=== PATIENT | female | born 1995 | race American Indian/Alaskan Native ===

== ENCOUNTER 2017-03-13 01:02 | Emergency (ER) | payer OTHER ==
[2017-03-13] MEDS ORDERED: TYLENOL ONE (04:52)
[2017-03-13] MEDS ORDERED: TYLENOL PO ONE (05:28)
[2017-03-13 05:49] VITALS: BP 111/71
[2017-03-13] MEDS ORDERED: TETRACAINE 0.5% OD STA (07:45)
[2017-03-13] MEDS ORDERED: FUL-GLO OP ONE (07:49)
[2017-03-13 09:41] LABS: Bilirubin,Urine NEG (Negative)
[2017-03-13 09:42] LABS: Blood,Urine NEG (Negative); Ketones,Urine NEG (Negative); Leukocyte Esterase,Urine NEG (Negative); Mucus,Urine FEW /HPF; Nitrite,Urine NEG (Negative); Protein,Urine <15 mg/dL mg/dL (Negative); RBC,Urine < 1.0 /HPF (0.0-6.0); Urobilinogen,Urine < 2.0 mg/dL (<2.0)
--- NOTE | 2017-03-13 09:58 | Emergency Department Report ---
ED Eye Problem HPI - General Chief complaint: Eye Problems Stated complaint: RT EYE PAIN Time Seen by Provider: 03/13/17 07:24 Source: patient Mode of arrival: Ambulatory Limitations: No Limitations - History of Present Illness Initial comments: PT c/o R eye pain and R sided headache x 2 weeks. PT states when the pain first started, she thought she had a stye and she went to the eye doctor. PT states she was prescribed Augmenting and steroid. PT states the swelling and redness went down but she still feels like she is being stabbed in the R eye and having R temporal wilder. PT was seen yesterday at eye doctor and told that everything was "normal" on their end and to go to ed. PT states her glasses are from 2013 and she received new RX for lens yesterday chief complaint: eye pain Onset/Timin -: Gradual Onset Description: gradual Location: right eye If Injury: none Severity scale (0 -10): 0 (pt denies currrent pain because she was given pain medication while in ED) If Pain, Quality: sharp Consistency: constant (if she does not take OTC medication ) Associated Symptoms: headache. denies: nausea/vomiting, fever Treatments Prior to Arrival: none - Related Data Previous Rx's Medication Instructions Recorded Last Taken Type Butalb/Acetamin/Caff 50-325-40 1 tab PO Q6HR PRN #12 tab 03/13/17 Unknown Rx [Fioricet] Erythromycin [Erythromycin Ophth 1 cm OD QID 7 Days 03/13/17 Unknown Rx Oint] Allergies Allergy/AdvReac Type Severity Reaction Status Date / Time sulfamethoxazole Allergy Hives Verified 07/20/13 00:21 [From Bactrim] trimethoprim [From Bactrim] Allergy Hives Verified 07/20/13 00:21 ED Review of Systems ROS: Stated complaint: RT EYE PAIN Other details as noted in HPI Comment: All other systems reviewed and negative Constitutional: denies: chills, fever Eyes: eye pain, eye discharge (resolved ), other (denies photophobia or painful movement of eyes ). denies: vision change ENT: denies: throat pain, congestion Endocrine: increased urine Gastrointestinal: denies: nausea, vomiting Genitourinary: frequency. denies: dysuria, abnormal menses Neurological: headache ED Past Medical Hx - Past Medical History Previous Medical History?: No - Surgical History Past Surgical History?: No - Social History Smoking Status: Current Some Day Smoker Substance Use Type: Marijuana - Medications Home Medications: Home Medications Medication Instructions Recorded Confirmed Last Taken Type Butalb/Acetamin/Caff 50-325-40 1 tab PO Q6HR PRN #12 tab 03/13/17 Unknown Rx [Fioricet] Erythromycin [Erythromycin Ophth 1 cm OD QID 7 Days 03/13/17 Unknown Rx Oint] ED Physical Exam - General Limitations: No Limitations General appearance: alert, in no apparent distress - Head Head exam: Present: atraumatic, normocephalic, normal inspection - Expanded Head Exam Expanded Head exam: Absent: contusion, racoon eyes, general tenderness, tenderness of temporal artery - Eye Eye exam: Present: normal appearance, PERRL, EOMI, other (corneal abrasion noted to the 7 oclock position of the right eye on wood's exam. ). Absent: conjunctival injection, nystagmus, periorbital swelling, periorbital tenderness Pupils: Present: normal accommodation - ENT ENT exam: Present: normal exam, mucous membranes moist, TM's normal bilaterally , normal external ear exam - Neck Neck exam: Present: normal inspection, full ROM. Absent: tenderness - Respiratory Respiratory exam: Present: normal lung sounds bilaterally. Absent: respiratory distress - Cardiovascular Cardiovascular Exam: Present: regular rate, normal rhythm - Extremities Exam Extremities exam: Present: normal inspection, full ROM - Back Exam Back exam: Present: normal inspection, full ROM. Absent: tenderness, CVA tenderness (R), CVA tenderness (L) - Neurological Exam Neurological exam: Present: alert, oriented X3, CN II-XII intact, normal gait - Psychiatric Psychiatric exam: Present: normal affect, normal mood - Skin Skin exam: Present: warm, dry, intact, normal color ED Course Vital Signs 03/13/17 03/13/17 03/13/17 02:17 05:30 05:48 Temperature 98.5 F Pulse Rate 60 58 L Respiratory 18 18 18 Rate Blood Pressure 102/63 Blood Pressure 111/71 [Left] O2 Sat by Pulse 100 100 Oximetry 03/13/17 05:49 Temperature Pulse Rate Respiratory 18 Rate Blood Pressure Blood Pressure [Left] O2 Sat by Pulse 100 Oximetry - Reevaluation(s) Reevaluation #1: 03/13/17 10:35 PT aware of physical exam findings. PT aware of lab and CT results. PT has no questions at this time. Reevaluation #2: 03/13/17 10:36 PT states TD vaccine is UTD. PT requesting eye ointment - Pulse Oximetry Interpretation Digit-Finger Initial Pulse Oximetry Readin Actions Taken: none ED Medical Decision Making - Lab Data Lab Results 03/13/17 Range/Units 07:47 Urine Color Yellow (Yellow) Urine Turbidity Clear (Clear) Urine pH 5.0 (5.0-7.0) Ur Specific [place] 1.021 (1.003-1.030) Urine Protein <15 mg/dl (Negative) mg/dL Urine Glucose (UA) Neg (Negative) mg/dL Urine Ketones Neg (Negative) mg/dL Urine Blood Neg (Negative) Urine Nitrite Neg (Negative) Ur Reducing Substances Not Reportable Urine Bilirubin Neg (Negative) Urine Ictotest Not Reportable Urine Urobilinogen < 2.0 (<2.0) mg/dL Ur Leukocyte Esterase Neg (Negative) Urine WBC (Auto) 1.0 (0.0-6.0) /HPF Urine RBC (Auto) < 1.0 (0.0-6.0) /HPF U Epithel Cells (Auto) 9.0 (0-13.0) /HPF Urine Mucus Few /HPF Urine HCG, Qual Negative (Negative) - Radiology Data Radiology results: report reviewed CT head - NAP - Differential Diagnosis uti, intracranial process, fb, abrasion Critical Care Time: No Critical care attestation.: If time is entered above; I have spent that time in minutes in the direct care of this critically ill patient, excluding procedure time. ED Disposition Clinical Impression: Injury of conjunctiva and corneal abrasion of right eye w/o FB Qualifiers: Encounter type: initial encounter Qualified Code(s): S05.01XA - Injury of conjunctiva and corneal abrasion without foreign body, right eye, initial encounter Headache Qualifiers: Headache type: unspecified Headache chronicity pattern: acute headache Intractability: not intractable Qualified Code(s): R51 - Headache Disposition: DISCHARGED TO HOME OR SELFCARE Is pt being admited?: No Does the pt Need Aspirin: No Condition: Stable Instructions: Corneal Abrasion (ED), Acute Headache (ED) Additional Instructions: follow back up with your eye doctor in 2-3 days. Follow up with pcp in 2-3 days, if your headache persists, you may need neurology referral Prescriptions: Butalb/Acetamin/Caff 50-325-40 [Fioricet] 1 tab PO Q6HR PRN #12 tab PRN Reason: Headache Erythromycin [Erythromycin Ophth Oint] 1 cm OD QID 7 Days Referrals: PRIMARY CARE,MD [Primary Care Provider] - 3-5 Days Forms: Accompanied Note, Work/School Release Form(ED) Time of Disposition: 10:38
--- NOTE | 2017-03-13 10:03 | Cat Scan Report ---
CT HEAD WITHOUT CONTRAST: HISTORY: Right temporal headache, eye pain. Serial contiguous axial images were obtained through the cranium. Intravenous contrast material was not administered. The ventricles are normal in size and appearance. There is no mass effect or midline shift. No areas of abnormally increased or decreased attenuation are seen. No mass lesion is seen. The mastoid air cells and visualized portions of the sinuses are normal. IMPRESSION: Cranial CT scan within normal limits.
== END 2017-03-13 10:44 | disposition home or self-care (01) ==
LOC: ED 01:02
DX: S05.01XA Injury of conjunctiva and corneal abrasion without foreign body, right eye, initial encounter (principal); R51 Headache; F17.200 Nicotine dependence, unspecified, uncomplicated; F12.10 Cannabis abuse, uncomplicated; Z88.8 Allergy status to other drugs, medicaments and biological substances; X58.XXXA Exposure to other specified factors, initial encounter; Y93.89 Activity, other specified; Y92.89 Other specified places as the place of occurrence of the external cause; Y99.8 Other external cause status
CPT/HCPCS: 70450; 81001; 81025

== ENCOUNTER 2018-01-03 22:44 | Emergency (ER) | payer SELFPAY ==
[2018-01-03 23:21] VITALS: BP 107/70
[2018-01-04] MEDS ORDERED: MOTRIN PO ONE (00:59)
--- NOTE | 2018-01-04 01:00 | Emergency Department Report ---
ED ENT HPI - General Chief complaint: Dental/Oral Stated complaint: TOOTHACHE/CHIPPED Time Seen by Provider: 01/04/18 00:56 Source: patient Mode of arrival: Ambulatory Limitations: No Limitations - History of Present Illness Initial comments: 22-year-old -[place] female comes in complaint of tooth pain. Patient reports that she had chipped her tooth about a month ago and she feels that the nerve is exposed. Patient reports she's been taking Tylenol extra strength which is kind of been decrease in her pain but today it got worse. Patient has allergy a dense sulfur drugs. She currently takes no other medications. MD complaint: tooth pain - Related Data Previous Rx's Medication Instructions Recorded Last Taken Type Butalb/Acetamin/Caff 50-325-40 1 tab PO Q6HR PRN #12 tab 03/13/17 Unknown Rx [Fioricet] Erythromycin [Erythromycin Ophth 1 cm OD QID 7 Days tube 03/13/17 Unknown Rx Oint] Ibuprofen [Motrin 600 MG tab] 600 mg PO Q8H #30 tablet 01/04/18 Unknown Rx Allergies Allergy/AdvReac Type Severity Reaction Status Date / Time sulfamethoxazole Allergy Hives Verified 07/20/13 00:21 [From Bactrim] trimethoprim [From Bactrim] Allergy Hives Verified 07/20/13 00:21 ED Dental HPI - General Chief complaint: Dental/Oral Stated complaint: TOOTHACHE/CHIPPED Time Seen by Provider: 01/04/18 00:56 Source: patient Mode of arrival: Ambulatory Limitations: No Limitations - Related Data Previous Rx's Medication Instructions Recorded Last Taken Type Butalb/Acetamin/Caff 50-325-40 1 tab PO Q6HR PRN #12 tab 03/13/17 Unknown Rx [Fioricet] Erythromycin [Erythromycin Ophth 1 cm OD QID 7 Days tube 03/13/17 Unknown Rx Oint] Ibuprofen [Motrin 600 MG tab] 600 mg PO Q8H #30 tablet 01/04/18 Unknown Rx Allergies Allergy/AdvReac Type Severity Reaction Status Date / Time sulfamethoxazole Allergy Hives Verified 07/20/13 00:21 [From Bactrim] trimethoprim [From Bactrim] Allergy Hives Verified 07/20/13 00:21 ED Review of Systems ROS: Stated complaint: TOOTHACHE/CHIPPED Other details as noted in HPI Constitutional: denies: chills, fever Eyes: denies: eye pain, eye discharge, vision change ENT: dental pain Respiratory: denies: cough, shortness of breath, wheezing Cardiovascular: denies: chest pain, palpitations Endocrine: no symptoms reported Gastrointestinal: denies: abdominal pain, nausea, diarrhea Genitourinary: denies: urgency, dysuria, discharge Musculoskeletal: denies: back pain, joint swelling, arthralgia Skin: denies: rash, lesions Neurological: denies: headache, weakness, paresthesias Psychiatric: denies: anxiety, depression Hematological/Lymphatic: denies: easy bleeding, easy bruising ED Past Medical Hx - Past Medical History Previous Medical History?: No - Surgical History Past Surgical History?: No - Social History Smoking Status: Current Every Day Smoker Substance Use Type: Marijuana - Medications Home Medications: Home Medications Medication Instructions Recorded Confirmed Last Taken Type Butalb/Acetamin/Caff 50-325-40 1 tab PO Q6HR PRN #12 tab 03/13/17 Unknown Rx [Fioricet] Erythromycin [Erythromycin Ophth 1 cm OD QID 7 Days tube 03/13/17 Unknown Rx Oint] Ibuprofen [Motrin 600 MG tab] 600 mg PO Q8H #30 tablet 01/04/18 Unknown Rx ED Physical Exam - General Limitations: No Limitations General appearance: alert, in no apparent distress - Head Head exam: Present: atraumatic, normocephalic - Eye Eye exam: Present: normal appearance - Expanded ENT Exam Expanded Teeth exam: Present: fractured tooth # (8). Absent: dental caries, gingival enlargement Throat exam: Positive: normal inspection - Neck Neck exam: Present: normal inspection ED Course Vital Signs 01/03/18 23:17 Temperature 98.4 F Pulse Rate 55 L Respiratory 16 Rate Blood Pressure 107/70 O2 Sat by Pulse 100 Oximetry ED Medical Decision Making - Medical Decision Making Patient has been evaluated by this provider. I discussed with patient that she needs to take an ibuprofen. I will refer her to several dentists that we have in our referral bank. Patient verbalized understanding Critical care attestation.: If time is entered above; I have spent that time in minutes in the direct care of this critically ill patient, excluding procedure time. ED Disposition Clinical Impression: Tooth fracture Qualifiers: Encounter type: initial encounter Fracture type: open Qualified Code(s): S02.5XXB - Fracture of tooth (traumatic), initial encounter for open fracture Disposition: DC-01 TO HOME OR SELFCARE Is pt being admited?: No Does the pt Need Aspirin: No Condition: Stable Additional Instructions: Please take ibuprofen as prescribed. Please follow up with one of the dentists I have listed below. Prescriptions: Ibuprofen [Motrin 600 MG tab] 600 mg PO Q8H #30 tablet Referrals: ROSENDO BEGUM MD [Primary Care Provider] - 3-5 Days [facility] [Outside] - 3-5 Days [facility] [Outside] - 3-5 Days
== END 2018-01-04 01:16 | disposition home or self-care (01) ==
LOC: ED 22:44
DX: S02.5XXB Fracture of tooth (traumatic), initial encounter for open fracture (principal); F17.200 Nicotine dependence, unspecified, uncomplicated; F12.10 Cannabis abuse, uncomplicated; Z88.2 Allergy status to sulfonamides; X58.XXXA Exposure to other specified factors, initial encounter; Y93.89 Activity, other specified; Y99.8 Other external cause status; Y92.89 Other specified places as the place of occurrence of the external cause
CPT/HCPCS: 99282

== ENCOUNTER 2018-03-03 12:42 | Emergency (ER) | payer SELFPAY ==
[2018-03-03 12:48] VITALS: BP 110/45
[2018-03-03] MEDS ORDERED: MOTRIN PO ONE (13:06)
--- NOTE | 2018-03-03 13:13 | Emergency Department Report ---
ED Lower Extremity HPI - General Chief Complaint: Extremity Injury, Lower Stated Complaint: BIG TOE PAIN Time Seen by Provider: 03/03/18 12:56 Source: patient Mode of arrival: Ambulatory Limitations: No Limitations - History of Present Illness Initial Comments: This is a 22-year-old female nontoxic, well nourished in appearance, no acute signs of distress presents to the ED with c/o of right great toe pain x1 day. Patient stated she was walking and kicked a rock by accident. Patient denies any other injuries. Patient denies any chest pain, shortness of breathe, numbness, tingling, headache, nausea, vomiting, stiff neck, back pain. Patient stated allergies to Bactrim. Denies PMH. Complaint: foot injury -: days(s) (1) Injury: Toes: Right Type of Injury: blunt Place: street/outdoors Severity: mild Severity scale (0 -10): 8 Improves With: immobilization Worsens With: movement, palpation Context: direct blow Associated Symptoms: swelling, able to partially bear weight, ambulatory. denies: snap/pop sensation, numbness, tingling, unable to bear weight - Related Data Previous Rx's Medication Instructions Recorded Last Taken Type Butalb/Acetamin/Caff 50-325-40 1 tab PO Q6HR PRN #12 tab 03/13/17 Unknown Rx [Fioricet] Erythromycin [Erythromycin Ophth 1 cm OD QID 7 Days tube 03/13/17 Unknown Rx Oint] Ibuprofen [Motrin 600 MG tab] 600 mg PO Q8H #30 tablet 01/04/18 Unknown Rx Ibuprofen [Motrin] 600 mg PO Q8H PRN #30 tablet 03/03/18 Unknown Rx Allergies Allergy/AdvReac Type Severity Reaction Status Date / Time sulfamethoxazole Allergy Hives Verified 07/20/13 00:21 [From Bactrim] trimethoprim [From Bactrim] Allergy Hives Verified 07/20/13 00:21 ED Review of Systems ROS: Stated complaint: BIG TOE PAIN Other details as noted in HPI Constitutional: denies: chills, fever Eyes: denies: eye pain, eye discharge, vision change ENT: denies: ear pain, throat pain Respiratory: denies: cough, shortness of breath, wheezing Cardiovascular: denies: chest pain, palpitations Endocrine: no symptoms reported Gastrointestinal: denies: abdominal pain, nausea, diarrhea Genitourinary: denies: urgency, dysuria, discharge Musculoskeletal: denies: back pain, joint swelling, arthralgia Skin: denies: rash, lesions Neurological: denies: headache, weakness, paresthesias Psychiatric: denies: anxiety, depression Hematological/Lymphatic: denies: easy bleeding, easy bruising ED Past Medical Hx - Past Medical History Previous Medical History?: No - Surgical History Past Surgical History?: No - Social History Smoking Status: Never Smoker Substance Use Type: None - Medications Home Medications: Home Medications Medication Instructions Recorded Confirmed Last Taken Type Butalb/Acetamin/Caff 50-325-40 1 tab PO Q6HR PRN #12 tab 03/13/17 Unknown Rx [Fioricet] Erythromycin [Erythromycin Ophth 1 cm OD QID 7 Days tube 03/13/17 Unknown Rx Oint] Ibuprofen [Motrin 600 MG tab] 600 mg PO Q8H #30 tablet 01/04/18 Unknown Rx Ibuprofen [Motrin] 600 mg PO Q8H PRN #30 tablet 03/03/18 Unknown Rx ED Physical Exam - General Limitations: No Limitations General appearance: alert, in no apparent distress - Head Head exam: Present: atraumatic, normocephalic - Eye Eye exam: Present: normal appearance Pupils: Present: normal accommodation - ENT ENT exam: Present: normal exam, mucous membranes moist - Neck Neck exam: Present: normal inspection, full ROM. Absent: tenderness, meningismus, lymphadenopathy - Respiratory Respiratory exam: Present: normal lung sounds bilaterally. Absent: respiratory distress, wheezes, rales, rhonchi, stridor, chest wall tenderness, accessory muscle use, decreased breath sounds, prolonged expiratory - Cardiovascular Cardiovascular Exam: Present: regular rate, normal rhythm, normal heart sounds. Absent: irregular rhythm, systolic murmur, diastolic murmur, rubs, gallop - GI/Abdominal GI/Abdominal exam: Present: soft, normal bowel sounds. Absent: distended, tenderness, guarding, rebound, rigid, diminished bowel sounds - Rectal Rectal exam: Present: deferred - Extremities Exam Extremities exam: Present: normal inspection, full ROM, tenderness, normal capillary refill. Absent: pedal edema, joint swelling, calf tenderness - Expanded Lower Extremity Exam Right Hip exam: Present: normal inspection, full ROM Upper Leg exam: Present: normal inspection, full ROM Knee exam: Present: normal inspection, full ROM Lower Leg exam: Present: normal inspection, full ROM Ankle exam: Present: normal inspection, full ROM. Absent: tenderness, swelling , abrasion, laceration, ecchymosis, deformity, crepidus, dislocation, erythema, anterior draw sign Foot/Toe exam: Present: normal inspection, full ROM, tenderness, abrasion. Absent: swelling, laceration, ecchymosis, deformity, crepidus, dislocation, erythema, amputation, puncture wound, foreign body, calcaneal tenderness, tenderness at base of 5th metatarsal, nail avulsion, subungual hematoma Neuro vascular tendon exam: Present: no vascular compromise. Absent: pulse deficit, abnormal cap refill, motor deficit, sensory deficit, tendon deficit, extremity cold to touch, pallor, abnormal 2-point discrimination, decreased fine /light touch, foot drop, peroneal nerve deficit, significant pain with passive ROM of distal joint Gait: Positive: observed and limited by pain - Back Exam Back exam: Present: normal inspection, full ROM - Neurological Exam Neurological exam: Present: alert, oriented X3, normal gait - Psychiatric Psychiatric exam: Present: normal affect, normal mood - Skin Skin exam: Present: warm, dry, intact, normal color. Absent: rash ED Course Vital Signs 03/03/18 12:46 Temperature 98.6 F Pulse Rate 94 H Respiratory 16 Rate Blood Pressure 110/45 O2 Sat by Pulse 99 Oximetry - Reevaluation(s) Reevaluation #1: 03/03/18 13:30 Patient is speaking in full sentences with no signs of distress noted. ED Lower Extremity MDM - Medical Decision Making This is a 22-year-old female that presents with left toe strain. Patient is stable and was examined by me. X-ray has been obtained and dictated by the radiologist. Patient is notified of the x-ray report with noted by the patient. Patient does have normal gait with no tenderness and no joint swelling. No ecchymosis. no joint redness or swelling. Not warm to touch. No signs of cellulites present. Patient receievd a post op ortho shoe. Patient was instructed to RICE therapy. Patient received Motrin for pain. Patient is discharged with Motrin. At time of discharge, the patient does not seem toxic or ill in appearance. No acute signs of distress noted. Patient agrees to discharge treatment plan of care. No further questions noted by the patient. Critical care attestation.: If time is entered above; I have spent that time in minutes in the direct care of this critically ill patient, excluding procedure time. ED Disposition Clinical Impression: Sprain of left great toe Qualifiers: Encounter type: initial encounter Qualified Code(s): S93.502A - Unspecified sprain of left great toe, initial encounter Disposition: TO HOME OR SELFCARE Is pt being admited?: No Does the pt Need Aspirin: No Condition: Stable Instructions: RICE Therapy (ED), Ibuprofen (By mouth) Additional Instructions: Follow-up with a orthopedic doctor in 3-5 days or if symptoms worsen and continue return to emergency room as soon as possible. Prescriptions: Ibuprofen [Motrin] 600 mg PO Q8H PRN #30 tablet PRN Reason: Pain Referrals: PRIMARY CAREMD [Primary Care Provider] - 3-5 Days MARYA PEREIRA MD [Staff Physician] - 3-5 Days [facility] [Outside] - 3-5 Days [facility] [Outside] - 3-5 Days Forms: Work/School Release Form(ED)
[2018-03-03] MEDS ORDERED: BOOSTRIX IM ONE (14:11)
--- NOTE | 2018-03-03 14:57 | XRay Report ---
FINAL REPORT PROCEDURE: XR TOE(S) 2+V LT TECHNIQUE: Left 1st toe, three views HISTORY: great toe pain COMPARISON: No prior studies are available for comparison. FINDINGS: No acute fracture or dislocation is seen. No focal osseous lesion is identified. No radiopaque foreign body is seen. IMPRESSION: No acute osseous abnormality is identified
== END 2018-03-03 16:25 | disposition home or self-care (01) ==
LOC: ED 12:42
DX: S93.502A Unspecified sprain of left great toe, initial encounter (principal); W22.8XXA Striking against or struck by other objects, initial encounter; Y93.89 Activity, other specified; Y92.89 Other specified places as the place of occurrence of the external cause; Y99.8 Other external cause status; Z88.2 Allergy status to sulfonamides
CPT/HCPCS: 90715; 99283

== ENCOUNTER 2018-07-19 21:27 | Emergency (ER) | payer SELFPAY ==
[2018-07-19 21:53] VITALS: BP 116/72
== END 2018-07-20 04:07 | disposition left against medical advice (07) ==
LOC: ED 21:27
DX: R21 Rash and other nonspecific skin eruption (principal); Z53.21 Procedure and treatment not carried out due to patient leaving prior to being seen by health care provider
CPT/HCPCS: 93005; 93010

== ENCOUNTER 2019-11-14 14:20 | Outpatient (CLI) | payer BC ==
[2019-11-14 14:50] LABS: Hematocrit 38.2 % (30.3-42.9); Hemoglobin 12.7 gm/dl (10.1-14.3); Mean Corpuscular HGB Conc 33 % (30-34); Mean Corpuscular Volume 81 fl (79-97); Platelet Count 209 K/mm3 (140-440); Red Blood Count 4.71 M/mm3 (3.65-5.03); Red Cell Distribution Width 14.1 % (13.2-15.2)
[2019-11-14 15:17] LABS: Iron 147 ug/dL (37-170); Total Iron Binding Capacity 253 mcg/dL (250-450)
[2019-11-14 15:48] LABS: Total Cells Counted 100
[2019-11-14 15:49] LABS: RBC Morphology Normal
[2019-11-20 07:15] LABS: HIV-1 Antibody Differentiation SEE SCANNED RESULT; HIV-2 Antibody Differentiation SEE SCANNED RESULT
== END 2019-11-14 14:21 | disposition home or self-care (01) ==
LOC: LAB 14:20
PROVIDERS: ATTEND Internal Medicine
DX: Z13.21 Encounter for screening for nutritional disorder (principal); D72.89 Other specified disorders of white blood cells; Z11.4 Encounter for screening for human immunodeficiency virus [HIV]
CPT/HCPCS: 36415; 82607; 82728; 82747; 83550; 85007; 85025; 86689

== ENCOUNTER 2020-01-16 11:19 | Outpatient (CLI) | payer BC ==
--- NOTE | 2020-01-16 12:07 | XRay Report ---
LUMBAR SPINE 3 VIEWS INDICATION / CLINICAL INFORMATION: LOW BACK PAIN. COMPARISON: None available. FINDINGS: VERTEBRAE: No acute fracture. No significant malalignment. DISC SPACES / FACET JOINTS:No significant abnormality. PARASPINAL SOFT TISSUES:No significant abnormality. ADDITIONAL FINDINGS: None. IMPRESSION: Normal study. Signer Name: Jay Joyce MD Signed: 01/16/2020 12:03 PM Workstation Name: [id number]
== END 2020-01-16 11:20 | disposition home or self-care (01) ==
LOC: XRAY 11:19
PROVIDERS: ATTEND Internal Medicine
DX: M54.5 Low back pain (principal)
CPT/HCPCS: 72100

== ENCOUNTER 2020-08-23 10:36 | Outpatient (CLI) | payer BC ==
--- NOTE | 2020-08-23 13:41 | XRay Report ---
THORACIC SPINE 3 VIEWS 1111 INDICATION: BACK PAIN COMPARISON: PA and lateral chest x-ray 10/28/2019 FINDINGS: Mild scoliosis is again noted. No fractures or subluxations are seen. No significant degene rative changes are noted. Signer Name: Romeo Batres MD Signed: 08/23/2020 1:36 PM Workstation Name: [id number]
== END 2020-08-23 10:37 | disposition home or self-care (01) ==
LOC: XRAY 10:36
PROVIDERS: ATTEND Internal Medicine
DX: M41.84 Other forms of scoliosis, thoracic region (principal)
CPT/HCPCS: 72072

== ENCOUNTER 2021-07-29 14:31 | Outpatient (CLI) | payer OTHER ==
--- NOTE | 2021-07-29 15:36 | XRay Report ---
ABDOMEN 1 VIEW(S) INDICATION / CLINICAL INFORMATION: CALCULAS OF KIDNEY/URETER. COMPARISON: None available. FINDINGS: TUBES / LINES: None. BOWEL GAS PATTERN: No significant abnormality. FREE AIR / EXTRALUMINAL GAS: None seen. ADDITIONAL FINDINGS: No obvious renal or ureteral calcifications are identified. IMPRESSION: No significant abnormality. Signer Name: Levon De La Rosa Jr, MD Signed: 07/29/2021 3:32 PM Workstation Name: [email or web address]
== END 2021-07-29 14:32 | disposition home or self-care (01) ==
LOC: XRAY 14:31
PROVIDERS: ATTEND Internal Medicine
DX: N20.2 Calculus of kidney with calculus of ureter (principal)
CPT/HCPCS: 74018

== ENCOUNTER 2022-06-25 19:07 | Observation (INO) | payer SELFPAY ==
--- NOTE | 2022-06-26 01:12 | XRay Report ---
CHEST 1 VIEW INDICATION / CLINICAL INFORMATION: Body Aches. FINDINGS: SUPPORT DEVICES: None. HEART / MEDIASTINUM: No significant abnormality. LUNGS / PLEURA: Right lower lobe pneumonia. The left lung is clear. Signer Name: Ben Catalan MD Signed: 06/26/2022 1:07 AM Workstation Name: [id number]
[2022-06-26 01:17] LABS: Hemoglobin 13.1 gm/dl (10.1-14.3); Mean Corpuscular HGB Conc 32 % (30-34); Mean Corpuscular Volume 81 fl (79-97); Platelet Count 172 K/mm3 (140-440); Red Blood Count 5.04 M/mm3 (3.65-5.03); Red Cell Distribution Width 14.7 % (13.2-15.2)
[2022-06-26 01:31] LABS: Alanine Aminotransferase 9 units/L (7-56); Albumin 4.1 g/dL (3.9-5); Blood Urea Nitrogen 9 mg/dL (7-17); Calcium 9.4 mg/dL (8.4-10.2); Hemolysis Index 13
[2022-06-26 01:32] LABS: BUN/Creatinine Ratio 13
[2022-06-26 01:56] LABS: Total Cells Counted 100
[2022-06-26 01:57] LABS: Basophils % (Manual) 0 % (0.0-1.8); Platelet Estimate Consistent w Auto
[2022-06-26 02:38] LABS: Color,Urine Yellow (Yellow)
[2022-06-26 02:41] LABS: Bacteria,Urine 1+ /HPF (Negative); Mucus,Urine 3+ /HPF
[2022-06-26 02:43] LABS: Ictotest,Urine Negative (Negative)
[2022-06-26 02:46] LABS: Amphetamine Screen,Urine Negative; Benzodiazepines Screen,Urine Negative; Cocaine Screen,Urine Negative; Methadone Screen,Urine Negative; Opiate Screen,Urine Negative
[2022-06-26 03:06] LABS: Cannabinoid Screen,Urine Positive
[2022-06-26] MEDS ORDERED: cefTRIAXone/NS 2 GM/100 ML 2 GM/100 ML BAG IV ONE (04:06)
[2022-06-26] MEDS ORDERED: AZITHROMYCIN/NS 500 MG/250 ML 500 MG/250 ML BAG IV ONE (04:09)
[2022-06-26] MEDS ORDERED: ALBUTEROL 2.5 MG/3 ML NEBU IH PRN (04:43)
[2022-06-26] MEDS ORDERED: MORPHINE 2 MG/1 ML INJ IV PRN (04:43)
[2022-06-26] MEDS ORDERED: MORPHINE 4 MG/1 ML INJ IV PRN (04:43)
[2022-06-26] MEDS ORDERED: ACETAMINOPHEN 325 MG TAB PO PRN (04:43)
[2022-06-26] MEDS ORDERED: ONDANSETRON 4 MG/2 ML INJ IV PRN (04:43)
--- NOTE | 2022-06-26 04:53 | History and Physical Report ---
History of Present Illness Date of examination: 06/26/22 Date of admission: 06/26/22 Chief complaint: Shortness of breath Golfing History of present illness: 27 years old female with no significant past medical history except marijuana abuse was brought to the emergency room because of shortness of breath and coughing and congestion and coryza. T-max is 98.9. In the emergency room patient oxygen dropped to 88% on ambulation. Patient chest x-ray shows right lower lobe pneumonia. Still going to admit the patient for pneumonia and suspecting coronavirus. We will send the coronavirus PCR Past History Past Surgical History: No surgical history Social history: no significant social history Family history: no significant family history Medications and Allergies Allergies Allergy/AdvReac Type Severity Reaction Status Date / Time sulfamethoxazole Allergy Hives Verified 07/20/13 00:21 [From Bactrim] trimethoprim [From Bactrim] Allergy Hives Verified 07/20/13 00:21 Home Medications Medication Instructions Recorded Confirmed Last Taken Type Azithromycin [Zithromax Z-COSTA] 250 mg PO DAILY #6 tablet 10/28/19 Unknown Rx Ibuprofen [Motrin] 800 mg PO Q8HR PRN #30 tablet 10/28/19 Unknown Rx Oseltamivir [Tamiflu] 75 mg PO BID #10 capsule 10/28/19 Unknown Rx Active Meds: Active Medications Acetaminophen (Acetaminophen 325 Mg Tab) 650 mg PO Q4H PRN PRN Reason: Pain MILD(1-3)/Fever >100.5/ISAACS Albuterol (Albuterol 2.5 Mg/3 Ml Nebu) 2.5 mg IH Q3HRT PRN PRN Reason: Shortness Of Breath Albuterol/Ipratropium (Ipratropium/Albuterol Sulfate 3 Ml Ampul.Neb) 1 ampul IH Q6HRT IBRAHIMA Azithromycin (Azithromycin 250 Mg Tab) 500 mg PO QDAY IBRAHIMA; Protocol Dexamethasone (Dexamethasone 4 Mg/Ml Vial) 6 mg IV DAILY IBRAHIMA Famotidine (Famotidine 20 Mg Tab) 20 mg PO BID IBRAHIMA Heparin Sodium (Porcine) (Heparin 5,000 Unit/1 Ml Vial) 5,000 unit SUB-Q Q12HR IBRAHIMA Azithromycin (Zithromax/Ns) 500 mg in 250 mls @ 250 mls/hr IV ONCE ONE; Protocol Stop: 06/26/22 05:08 Ceftriaxone Sodium (Rocephin/Ns 2 Gm/100 Ml) 2 gm in 100 mls @ 200 mls/hr IV Q24H IBRAHIMA; Protocol Morphine Sulfate (Morphine 2 Mg/1 Ml Inj) 2 mg IV Q4H PRN PRN Reason: Pain, Moderate (4-6) Morphine Sulfate (Morphine 4 Mg/1 Ml Inj) 4 mg IV Q4H PRN PRN Reason: Pain , Severe (7-10) Ondansetron HCl (Ondansetron 4 Mg/2 Ml Inj) 4 mg IV Q8H PRN PRN Reason: Nausea And Vomiting Oseltamivir Phosphate (Oseltamivir 75 Mg Cap) 75 mg PO BID IBRAHIMA Sodium Chloride (Sodium Chloride 0.9% 10 Ml Flush Syringe) 10 ml IV BID IBRAHIMA Sodium Chloride (Sodium Chloride 0.9% 10 Ml Flush Syringe) 10 ml IV PRN PRN PRN Reason: LINE FLUSH Review of Systems All systems: negative Cardiovascular: shortness of breath, dyspnea on exertion Respiratory: cough, dyspnea on exertion Exam - Constitutional Vitals: Temp Pulse Resp BP Pulse Ox 98.9 F 59 L 19 97/64 89 06/26/22 02:16 06/26/22 02:16 06/26/22 02:16 06/26/22 02:16 06/26/22 04:03 General appearance: Present: no acute distress, well-nourished - EENT Eyes: Present: PERRL ENT: hearing intact, clear oral mucosa - Neck Neck: Present: supple, normal ROM - Respiratory Respiratory effort: normal Respiratory: bilateral: CTA - Cardiovascular Heart Sounds: Present: S1 & S2. Absent: rub, click - Extremities Extremities: pulses symmetrical, No edema Peripheral Pulses: within normal limits - Abdominal General gastrointestinal: Present: soft, non-tender, non-distended, normal bowel sounds Female genitourinary: Present: normal - Integumentary Integumentary: Present: clear, warm, dry - Musculoskeletal Musculoskeletal: gait normal, strength equal bilaterally - Psychiatric Psychiatric: appropriate mood/affect, intact judgment & insight - Neurologic Neurologic: CNII-XII intact, moves all extremities Results - Labs CBC & Chem 7: 06/26/22 00:51 06/26/22 00:51 Labs: Laboratory Last Values WBC 2.6 K/mm3 (4.5-11.0) L 06/26/22 00:51 RBC 5.04 M/mm3 (3.65-5.03) H 06/26/22 00:51 Hgb 13.1 gm/dl (10.1-14.3) 06/26/22 00:51 Hct 41.0 % (30.3-42.9) 06/26/22 00:51 MCV 81 fl (79-97) 06/26/22 00:51 MCH 26 pg (28-32) L 06/26/22 00:51 MCHC 32 % (30-34) 06/26/22 00:51 RDW 14.7 % (13.2-15.2) 06/26/22 00:51 Plt Count 172 K/mm3 (140-440) 06/26/22 00:51 Piatt % (Auto) [employer] 06/26/22 00:51 Add Manual Diff Complete 06/26/22 00:51 Total Counted 100 08 00:51 Seg Neutrophils % [employer] 06/26/22 00:51 Seg Neuts % (Manual) 24.0 % (40.0-70.0) L 06/26/22 00:51 Band Neutrophils % 0 % 06/26/22 00:51 Lymphocytes % (Manual) 45.0 % (13.4-35.0) H 06/26/22 00:51 Reactive Lymphs % (Man) 0 % 06/26/22 00:51 Monocytes % (Manual) 29.0 % (0.0-7.3) H 06/26/22 00:51 Eosinophils % (Manual) 2.0 % (0.0-4.3) 06/26/22 00:51 Basophils % (Manual) 0 % (0.0-1.8) 06/26/22 00:51 Metamyelocytes % 0 % 06/26/22 00:51 Myelocytes % 0 % 06/26/22 00:51 Promyelocytes % 0 % 06/26/22 00:51 Blast Cells % 0 % 06/26/22 00:51 Nucleated RBC % Not Reportable 06/26/22 00:51 Seg Neutrophils # Man 0.6 K/mm3 (1.8-7.7) L 06/26/22 00:51 Band Neutrophils # 0.0 K/mm3 06/26/22 00:51 Lymphocytes # (Manual) 1.2 K/mm3 (1.2-5.4) 06/26/22 00:51 Abs React Lymphs (Man) 0.0 K/mm3 06/26/22 00:51 Monocytes # (Manual) 0.8 K/mm3 (0.0-0.8) 06/26/22 00:51 Eosinophils # (Manual) 0.1 K/mm3 (0.0-0.4) 06/26/22 00:51 Basophils # (Manual) 0.0 K/mm3 (0.0-0.1) 06/26/22 00:51 Metamyelocytes # 0.0 K/mm3 06/26/22 00:51 Myelocytes # 0.0 K/mm3 06/26/22 00:51 Promyelocytes # 0.0 K/mm3 06/26/22 00:51 Blast Cells # 0.0 K/mm3 06/26/22 00:51 WBC Morphology Not Reportable 06/26/22 00:51 Hypersegmented Neuts Not Reportable 06/26/22 00:51 Hyposegmented Neuts Not Reportable 06/26/22 00:51 Hypogranular Neuts Not Reportable 06/26/22 00:51 Smudge Cells Not Reportable 06/26/22 00:51 Toxic Granulation Not Reportable 06/26/22 00:51 Toxic Vacuolation Not Reportable 06/26/22 00:51 Dohle Bodies Not Reportable 06/26/22 00:51 Pelger-Huet Anomaly Not Reportable 06/26/22 00:51 Rustam Rods Not Reportable 06/26/22 00:51 Platelet Estimate Consistent w auto 06/26/22 00:51 Clumped Platelets Not Reportable 06/26/22 00:51 Plt Clumps, EDTA Not Reportable 06/26/22 00:51 Large Platelets Not Reportable 06/26/22 00:51 Giant Platelets Not Reportable 06/26/22 00:51 Platelet Satelliting Not Reportable 06/26/22 00:51 Plt Morphology Comment Not Reportable 06/26/22 00:51 RBC Morphology Not Reportable 06/26/22 00:51 Dimorphic RBCs Not Reportable 06/26/22 00:51 Polychromasia Not Reportable 06/26/22 00:51 Hypochromasia Not Reportable 06/26/22 00:51 Poikilocytosis Not Reportable 06/26/22 00:51 Anisocytosis Not Reportable 06/26/22 00:51 Microcytosis Not Reportable 06/26/22 00:51 Macrocytosis Not Reportable 06/26/22 00:51 Spherocytes Not Reportable 06/26/22 00:51 Pappenheimer Bodies Not Reportable 06/26/22 00:51 Sickle Cells Not Reportable 06/26/22 00:51 Target Cells Not Reportable 06/26/22 00:51 Tear Drop Cells Not Reportable 06/26/22 00:51 Ovalocytes Not Reportable 06/26/22 00:51 Helmet Cells Not Reportable 06/26/22 00:51 Sandhu[place] Bodies Not Reportable 06/26/22 00:51 [place] Rings Not Reportable 06/26/22 00:51 [place] Cells Not Reportable 06/26/22 00:51 Bite Cells Not Reportable 06/26/22 00:51 Crenated Cell Not Reportable 06/26/22 00:51 Elliptocytes Not Reportable 06/26/22 00:51 Acanthocytes (Spur) Not Reportable 06/26/22 00:51 Rouleaux Not Reportable 06/26/22 00:51 Hemoglobin C Crystals Not Reportable 06/26/22 00:51 Schistocytes Not Reportable 06/26/22 00:51 Malaria parasites Not Reportable 06/26/22 00:51 Frankie Bodies Not Reportable 06/26/22 00:51 Hem Pathologist Commnt No 06/26/22 00:51 Sodium 138 mmol/L (137-145) 06/26/22 00:51 Potassium 4.2 mmol/L (3.6-5.0) 06/26/22 00:51 Chloride 104.1 mmol/L (98-107) 06/26/22 00:51 Carbon Dioxide 23 mmol/L (22-30) 06/26/22 00:51 Anion Gap 15 mmol/L 06/26/22 00:51 BUN 9 mg/dL (7-17) 06/26/22 00:51 Creatinine 0.7 mg/dL (0.6-1.2) 06/26/22 00:51 Estimated GFR > 60 ml/min 06/26/22 00:51 BUN/Creatinine Ratio 13 % 06/26/22 00:51 Glucose 95 mg/dL (65-100) 06/26/22 00:51 Calcium 9.4 mg/dL (8.4-10.2) 06/26/22 00:51 Total Bilirubin 0.50 mg/dL (0.1-1.2) 06/26/22 00:51 AST 12 units/L (5-40) 06/26/22 00:51 ALT 9 units/L (7-56) 06/26/22 00:51 Alkaline Phosphatase 72 units/L (35-129) 06/26/22 00:51 Total Protein 7.5 g/dL (6.3-8.2) 06/26/22 00:51 Albumin 4.1 g/dL (3.9-5) 06/26/22 00:51 Albumin/Globulin Ratio 1.2 % 06/26/22 00:51 Urine Color Yellow (Yellow) 06/26/22 Unknown Urine Turbidity Clear (Clear) 06/26/22 Unknown Specific Sod (Man) 1.030 (1.003-1.030) 06/26/22 Unknown Ur Protein (Man) 1+ mg/dL (Negative) 06/26/22 Unknown Ur Ketones (Man) Negative (Negative) 06/26/22 Unknown Ur Nitrite (Man) Negative (Negative) 06/26/22 Unknown Urine Bilirubin (Man) Small (Negative) 06/26/22 Unknown Urine Ictotest Negative (Negative) 06/26/22 Unknown Leukocyte Esterase (Man) Negative (Negative) 06/26/22 Unknown Urine WBC (Auto) 2.0 /HPF (0.0-6.0) 06/26/22 Unknown Urine RBC (Auto) 1.0 /HPF (0.0-6.0) 06/26/22 Unknown U Epithel Cells (Auto) 19.0 /HPF (0-13.0) H 06/26/22 Unknown Urine Bacteria (Auto) 1+ /HPF (Negative) 06/26/22 Unknown Urine RBC (Manual) Negative (Negative) 06/26/22 Unknown Urine Mucus 3+ /HPF 06/26/22 Unknown Urine Opiates Screen Negative 06/26/22 Unknown Urine Methadone Screen Negative 06/26/22 Unknown Ur Barbiturates Screen Negative 06/26/22 Unknown Ur Phencyclidine Scrn Negative 06/26/22 Unknown Ur Amphetamines Screen Negative 06/26/22 Unknown U Benzodiazepines Scrn Negative 06/26/22 Unknown Urine Cocaine Screen Negative 06/26/22 Unknown U Marijuana (THC) Screen Positive 06/26/22 Unknown Drugs of Abuse Note Disclamer 06/26/22 Unknown - Imaging and Cardiology Chest x-ray: report reviewed Assessment and Plan VTE prophylaxis?: Chemical Plan of care discussed with patient/family: Yes - Patient Problems (1) Pneumonia Current Visit: Yes Status: Acute Plan to address problem: Admit the patient to the medical floor. Oxygen via nasal cannula 3 L/min. Albuterol via nebulizer every 4 hours. DuoNeb by nebulizer every 4 hours as needed. Rocephin 2 g daily. Zithromax 500 g p.o. daily. We will do the blood culture and sputum culture. Consult pulmonary if needed (2) Hypoxia Current Visit: Yes Status: Acute Plan to address problem: Oxygen via nasal cannula 3 L/min. Albuterol via nebulizer every 4 hours. DuoNeb by nebulizer every 4 hours as needed. Dexamethasone 6 mg IV daily. (3) COVID-19 Current Visit: Yes Status: Acute Plan to address problem: Oxygen via nasal cannula 3 L/min. Albuterol via nebulizer every 4 hours. DuoNeb by nebulizer every 4 hours as needed. Rocephin 2 g daily. Zithromax 500 g p.o. daily. Dexamethasone 6 mg IV daily. Follow COVID PCR. We will do the blood culture and sputum culture. Consult infectious disease if needed (4) DVT prophylaxis Current Visit: Yes Status: Acute Plan to address problem: Heparin 5000 units subcu every 12 hours for DVT prophylaxis. Pepcid 20 mg p.o. twice daily for GI prophylaxis. Patient is a full code
--- NOTE | 2022-06-26 05:29 | Emergency Department Report ---
ED General Adult HPI - General Chief complaint: Upper Respiratory Infection Stated complaint: BODY ACHE/SWEATING Time Seen by Provider: 06/26/22 02:09 Source: patient Mode of arrival: Ambulatory Limitations: No Limitations - History of Present Illness Initial comments: 27-year-old Filipino female with no significant past medical history presents emerged department complaining of a few day history of cough congestion coryza shortness of breath and chest aches -: Gradual Radiation: non-radiation Severity scale (0 -10): 5 Quality: aching, dull Consistency: constant Improves with: none Worsens with: none Associated Symptoms: cough, malaise. denies: confusion, chest pain, shortness of breath Treatments Prior to Arrival: none - Related Data Previous Rx's Medication Instructions Recorded Last Taken Type Azithromycin [Zithromax Z-COSTA] 250 mg PO DAILY #6 tablet 10/28/19 Unknown Rx Ibuprofen [Motrin] 800 mg PO Q8HR PRN #30 tablet 10/28/19 Unknown Rx Oseltamivir [Tamiflu] 75 mg PO BID #10 capsule 10/28/19 Unknown Rx Allergies Allergy/AdvReac Type Severity Reaction Status Date / Time sulfamethoxazole Allergy Hives Verified 07/20/13 00:21 [From Bactrim] trimethoprim [From Bactrim] Allergy Hives Verified 07/20/13 00:21 ED Review of Systems ROS: Stated complaint: BODY ACHE/SWEATING Other details as noted in HPI Comment: All other systems reviewed and negative ED Past Medical Hx - Social History Smoking Status: Never Smoker Substance Use Type: Marijuana - Medications Home Medications: Home Medications Medication Instructions Recorded Confirmed Last Taken Type Azithromycin [Zithromax Z-COSTA] 250 mg PO DAILY #6 tablet 10/28/19 Unknown Rx Ibuprofen [Motrin] 800 mg PO Q8HR PRN #30 tablet 10/28/19 Unknown Rx Oseltamivir [Tamiflu] 75 mg PO BID #10 capsule 10/28/19 Unknown Rx ED Physical Exam - General Limitations: No Limitations General appearance: alert, in no apparent distress - Head Head exam: Present: atraumatic, normocephalic - Eye Eye exam: Present: normal appearance, EOMI - ENT ENT exam: Present: normal exam, normal orophraynx, mucous membranes moist, TM's normal bilaterally - Neck Neck exam: Present: normal inspection - Respiratory Respiratory exam: Present: normal lung sounds bilaterally. Absent: respiratory distress, wheezes, rales, accessory muscle use, decreased breath sounds - Cardiovascular Cardiovascular Exam: Present: regular rate, normal rhythm. Absent: systolic murmur, diastolic murmur, rubs, gallop - GI/Abdominal GI/Abdominal exam: Present: soft, normal bowel sounds - Extremities Exam Extremities exam: Present: normal inspection - Back Exam Back exam: Present: normal inspection - Neurological Exam Neurological exam: Present: alert, oriented X3 - Psychiatric Psychiatric exam: Present: normal affect, normal mood - Skin Skin exam: Present: warm, dry, intact, normal color. Absent: rash ED Course Vital Signs 06/25/22 06/26/22 06/26/22 21:28 02:16 04:03 Temperature 98.7 F 98.9 F Pulse Rate 55 L 59 L Respiratory 18 19 Rate Blood Pressure 111/75 Blood Pressure 97/64 [Left] O2 Sat by Pulse 99 99 89 Oximetry ED Medical Decision Making - Lab Data Result diagrams: 06/26/22 00:51 06/26/22 00:51 - Radiology Data [facility] [address] [place] [address] XRay Report Signed Patient: MARTHA QUINTANILLA MR#: [id number] : 1995 Acct:[id number] Age/Sex: 27 / F ADM Date: 06/25/22 Loc: ED Attending Dr: Ordering Physician: VICTOR HUGO FRANCISCO Date of Service: 06/26/22 Procedure(s): XR chest 1V ap Accession Number(s): [id number] cc: VICTOR HUGO FRANCISCO Fluoro Time In Minutes: CHEST 1 VIEW INDICATION / CLINICAL INFORMATION: Body Aches. FINDINGS: SUPPORT DEVICES: None. HEART / MEDIASTINUM: No significant abnormality. LUNGS / PLEURA: Right lower lobe pneumonia. The left lung is clear. Signer Name: Ben Catalan MD Signed: 06/26/2022 1:07 AM Workstation Name: [id number] Transcribed By: JUANCHO Dictated By: Ben Catalan MD Electronically Authenticated By: Ben Catalan MD Signed Date/Time: 06/26/22106 DD/ 6 TD/TT: - Medical Decision Making This patient presents to the emergency department with fever and lower respira tory symptoms concerning for viral syndrome including flu and COVID-19. Patient has suspicion and is for COVID-19 infection. Differential diagnosis includes other viral causes of lower respiratory symptoms, pneumonia, asthma, bronchitis. Patient has leukocytopenia as well as desaturation to 89% on room air with ambulation and associated shortness of breath. Critical care attestation.: If time is entered above; I have spent that time in minutes in the direct care of this critically ill patient, excluding procedure time. ED Disposition Clinical Impression: Right lower lobe pneumonia, Exercise hypoxemia Disposition: 09 ADMITTED INPATIENT Is pt being admited?: No Does the pt Need Aspirin: No Condition: Stable Instructions: Bacterial Pneumonia (ED), Community-Acquired Pneumonia, Adult Referrals: SUGAR BAEZ MD [Primary Care Provider] - 3-5 Days
[2022-06-26] MEDS: IPRATROPIUM/ALBUTEROL SULFATE 3 ML AMPUL.NEB IH SCH ×3 (08:00→19:52)
--- NOTE | 2022-06-26 09:37 | Progress Note ---
Assessment and Plan Assessment and plan: (1) right lower lobe pneumonia pneumonia/community-acquired/present on admission Oxygen via nasal cannula 3 L/min. Titrate O2 sats to more than 90% Empiric antibiotics, follow cultures, cough medicine as needed, supportive care (2) Hypoxia requiring supplemental oxygen/present on admission Oxygen via nasal cannula 3 L/min. Albuterol via nebulizer every 4 hours. Nebulizers, castro PCR test (3) PUI/high suspicion for COVID-19 Isolation precautions, castro PCR test is requested Continue supportive care, consult ID if PCR is positive (4) history of marijuana use; Counseling done patient strongly advised to quit recreational drug use (5)DVT/GI prophylaxis Subcu Heparin 5000 units subcu every 12 hours Pepcid 20 mg p.o. twice daily for GI prophylaxis. Closely monitor the patient and adjust management as needed Plan of care reviewed with the patient, her boyfriend and the patient's nurse Disposition; follow work-up if negative and stable may discharge home Prolonged care 35 minutes inpatient . Advance care planning; 30 minutes I discussed patient's condition with her, I discussed diagnosis, I discussed tests and reports in detail I discussed prognosis, I discussed treatment plan, and I discussed discharge planning when stable Patient had few questions, answered all of them, she verbalized understanding and agreed with the treatment plan History Interval history: I have seen and examined the patient this afternoon in ER awaiting bed assignment Patient's chart and current medications, tests and reports reviewed Patient complains of shortness of breath and headache Patient is frustrated that she is still in the ER Vital signs reviewed Hospitalist Physical - Constitutional Vitals: Temp Pulse Resp BP Pulse Ox 98.9 F 79 21 95/77 95 06/26/22 06:28 06/26/22 06:28 06/26/22 06:28 06/26/22 06:28 06/26/22 06:28 General appearance: Present: no acute distress, well-nourished, other (Slightly irritated) - EENT Eyes: Present: PERRL, EOM intact ENT: hearing intact, clear oral mucosa - Neck Neck: Present: supple, normal ROM - Respiratory Respiratory effort: normal Respiratory: bilateral: diminished, rhonchi, negative: rales, wheezing - Cardiovascular Rhythm: regular Heart Sounds: Present: S1 & S2 - Extremities Extremities: no ischemia, No edema - Abdominal General gastrointestinal: soft, non-tender, non-distended, normal bowel sounds - Integumentary Integumentary: Present: clear, warm - Psychiatric Psychiatric: appropriate mood/affect, cooperative - Neurologic Neurologic: CNII-XII intact, moves all extremities Results - Labs CBC & Chem 7: 06/26/22 00:51 08 00:51 Labs: Laboratory Last Values WBC 2.6 K/mm3 (4.5-11.0) L 06/26/22 00:51 RBC 5.04 M/mm3 (3.65-5.03) H 06/26/22 00:51 Hgb 13.1 gm/dl (10.1-14.3) 06/26/22 00:51 Hct 41.0 % (30.3-42.9) 06/26/22 00:51 MCV 81 fl (79-97) 06/26/22 00:51 MCH 26 pg (28-32) L 06/26/22 00:51 MCHC 32 % (30-34) 06/26/22 00:51 RDW 14.7 % (13.2-15.2) 06/26/22 00:51 Plt Count 172 K/mm3 (140-440) 06/26/22 00:51 [place] % (Auto) [place] 06/26/22 00:51 Add Manual Diff Complete 06/26/22 00:51 Total Counted 100 08 00:51 Seg Neutrophils % Laborer [place] 06/26/22 00:51 Seg Neuts % (Manual) 24.0 % (40.0-70.0) L 06/26/22 00:51 Band Neutrophils % 0 % 06/26/22 00:51 Lymphocytes % (Manual) 45.0 % (13.4-35.0) H 06/26/22 00:51 Reactive Lymphs % (Man) 0 % 06/26/22 00:51 Monocytes % (Manual) 29.0 % (0.0-7.3) H 06/26/22 00:51 Eosinophils % (Manual) 2.0 % (0.0-4.3) 06/26/22 00:51 Basophils % (Manual) 0 % (0.0-1.8) 06/26/22 00:51 Metamyelocytes % 0 % 06/26/22 00:51 Myelocytes % 0 % 06/26/22 00:51 Promyelocytes % 0 % 06/26/22 00:51 Blast Cells % 0 % 06/26/22 00:51 Nucleated RBC % Not Reportable 06/26/22 00:51 Seg Neutrophils # Man 0.6 K/mm3 (1.8-7.7) L 06/26/22 00:51 Band Neutrophils # 0.0 K/mm3 06/26/22 00:51 Lymphocytes # (Manual) 1.2 K/mm3 (1.2-5.4) 06/26/22 00:51 Abs React Lymphs (Man) 0.0 K/mm3 06/26/22 00:51 Monocytes # (Manual) 0.8 K/mm3 (0.0-0.8) 06/26/22 00:51 Eosinophils # (Manual) 0.1 K/mm3 (0.0-0.4) 06/26/22 00:51 Basophils # (Manual) 0.0 K/mm3 (0.0-0.1) 06/26/22 00:51 Metamyelocytes # 0.0 K/mm3 06/26/22 00:51 Myelocytes # 0.0 K/mm3 06/26/22 00:51 Promyelocytes # 0.0 K/mm3 06/26/22 00:51 Blast Cells # 0.0 K/mm3 06/26/22 00:51 WBC Morphology Not Reportable 06/26/22 00:51 Hypersegmented Neuts Not Reportable 06/26/22 00:51 Hyposegmented Neuts Not Reportable 06/26/22 00:51 Hypogranular Neuts Not Reportable 06/26/22 00:51 Smudge Cells Not Reportable 06/26/22 00:51 Toxic Granulation Not Reportable 06/26/22 00:51 Toxic Vacuolation Not Reportable 06/26/22 00:51 Dohle Bodies Not Reportable 06/26/22 00:51 Pelger-Huet Anomaly Not Reportable 06/26/22 00:51 Rustam Rods Not Reportable 06/26/22 00:51 Platelet Estimate Consistent w auto 06/26/22 00:51 Clumped Platelets Not Reportable 06/26/22 00:51 Plt Clumps, EDTA Not Reportable 06/26/22 00:51 Large Platelets Not Reportable 06/26/22 00:51 Giant Platelets Not Reportable 06/26/22 00:51 Platelet Satelliting Not Reportable 06/26/22 00:51 Plt Morphology Comment Not Reportable 06/26/22 00:51 RBC Morphology Not Reportable 06/26/22 00:51 Dimorphic RBCs Not Reportable 06/26/22 00:51 Polychromasia Not Reportable 06/26/22 00:51 Hypochromasia Not Reportable 06/26/22 00:51 Poikilocytosis Not Reportable 06/26/22 00:51 Anisocytosis Not Reportable 06/26/22 00:51 Microcytosis Not Reportable 06/26/22 00:51 Macrocytosis Not Reportable 06/26/22 00:51 Spherocytes Not Reportable 06/26/22 00:51 Pappenheimer Bodies Not Reportable 06/26/22 00:51 Sickle Cells Not Reportable 06/26/22 00:51 Target Cells Not Reportable 06/26/22 00:51 Tear Drop Cells Not Reportable 06/26/22 00:51 Ovalocytes Not Reportable 06/26/22 00:51 Helmet Cells Not Reportable 06/26/22 00:51 [place] Bodies Not Reportable 06/26/22 00:51 [place] Rings Not Reportable 06/26/22 00:51 [place] Cells Not Reportable 06/26/22 00:51 Bite Cells Not Reportable 06/26/22 00:51 Crenated Cell Not Reportable 06/26/22 00:51 Elliptocytes Not Reportable 06/26/22 00:51 Acanthocytes (Spur) Not Reportable 06/26/22 00:51 Rouleaux Not Reportable 06/26/22 00:51 Hemoglobin C Crystals Not Reportable 06/26/22 00:51 Schistocytes Not Reportable 06/26/22 00:51 Malaria parasites Not Reportable 06/26/22 00:51 Frankie Bodies Not Reportable 06/26/22 00:51 Hem Pathologist Commnt No 06/26/22 00:51 Sodium 138 mmol/L (137-145) 06/26/22 00:51 Potassium 4.2 mmol/L (3.6-5.0) 06/26/22 00:51 Chloride 104.1 mmol/L (98-107) 06/26/22 00:51 Carbon Dioxide 23 mmol/L (22-30) 06/26/22 00:51 Anion Gap 15 mmol/L 06/26/22 00:51 BUN 9 mg/dL (7-17) 06/26/22 00:51 Creatinine 0.7 mg/dL (0.6-1.2) 06/26/22 00:51 Estimated GFR > 60 ml/min 06/26/22 00:51 BUN/Creatinine Ratio 13 % 06/26/22 00:51 Glucose 95 mg/dL (65-100) 06/26/22 00:51 Calcium 9.4 mg/dL (8.4-10.2) 06/26/22 00:51 Total Bilirubin 0.50 mg/dL (0.1-1.2) 06/26/22 00:51 AST 12 units/L (5-40) 06/26/22 00:51 ALT 9 units/L (7-56) 06/26/22 00:51 Alkaline Phosphatase 72 units/L (35-129) 06/26/22 00:51 Total Protein 7.5 g/dL (6.3-8.2) 06/26/22 00:51 Albumin 4.1 g/dL (3.9-5) 06/26/22 00:51 Albumin/Globulin Ratio 1.2 % 06/26/22 00:51 HCG, Quant < 2 mIU/mL (0-4) 06/26/22 04:54 Urine Color Yellow (Yellow) 06/26/22 Unknown Urine Turbidity Clear (Clear) 06/26/22 Unknown Specific [place] (Man) 1.030 (1.003-1.030) 06/26/22 Unknown Ur Protein (Man) 1+ mg/dL (Negative) 06/26/22 Unknown Ur Ketones (Man) Negative (Negative) 06/26/22 Unknown Ur Nitrite (Man) Negative (Negative) 06/26/22 Unknown Urine Bilirubin (Man) Small (Negative) 06/26/22 Unknown Urine Ictotest Negative (Negative) 06/26/22 Unknown Leukocyte Esterase (Man) Negative (Negative) 06/26/22 Unknown Urine WBC (Auto) 2.0 /HPF (0.0-6.0) 06/26/22 Unknown Urine RBC (Auto) 1.0 /HPF (0.0-6.0) 06/26/22 Unknown U Epithel Cells (Auto) 19.0 /HPF (0-13.0) H 06/26/22 Unknown Urine Bacteria (Auto) 1+ /HPF (Negative) 06/26/22 Unknown Urine RBC (Manual) Negative (Negative) 06/26/22 Unknown Urine Mucus 3+ /HPF 06/26/22 Unknown Urine Opiates Screen Negative 06/26/22 Unknown Urine Methadone Screen Negative 06/26/22 Unknown Ur Barbiturates Screen Negative 06/26/22 Unknown Ur Phencyclidine Scrn Negative 06/26/22 Unknown Ur Amphetamines Screen Negative 06/26/22 Unknown U Benzodiazepines Scrn Negative 06/26/22 Unknown Urine Cocaine Screen Negative 06/26/22 Unknown U Marijuana (THC) Screen Positive 06/26/22 Unknown Drugs of Abuse Note Disclamer 06/26/22 Unknown Active Medications - Current Medications Current Medications: Generic Name Dose Route Start Last Admin Trade Name Freq PRN Reason Stop Dose Admin Acetaminophen 650 mg 06/26/22 04:43 Acetaminophen 325 Mg Tab PO Q4H PRN Pain MILD(1-3)/Fever >100.5/ISAACS Albuterol 2.5 mg 06/26/22 04:43 Albuterol 2.5 Mg/3 Ml Nebu IH Q3HRT PRN Shortness Of Breath Albuterol/Ipratropium 1 ampul 06/26/22 08:00 Ipratropium/Albuterol Sulfate 3 Ml Ampul.Neb IH Q6HRT [facility] Azithromycin 500 mg 06/27/22 10:00 Azithromycin 250 Mg Tab PO 06/30/22 10:01 QDAY [facility] Protocol Dexamethasone 6 mg 06/26/22 10:00 Dexamethasone 4 Mg/Ml Vial IV DAILY [facility] Famotidine 20 mg 06/26/22 10:00 Famotidine 20 Mg Tab PO BID IBRAHIMA Heparin Sodium (Porcine) 5,000 unit 06/26/22 10:00 Heparin 5,000 Unit/1 Ml Vial SUB-Q Q12HR [facility] Ceftriaxone Sodium 2 gm in 100 mls @ 200 mls/hr 06/27/22 05:00 Rocephin/Ns 2 Gm/100 Ml IV 06/30/22 05:29 Q24H [facility] Protocol Morphine Sulfate 2 mg 06/26/22 04:43 Morphine 2 Mg/1 Ml Inj IV Q4H PRN Pain, Moderate (4-6) Morphine Sulfate 4 mg 06/26/22 04:43 06/26/22 05:29 Morphine 4 Mg/1 Ml Inj IV 4 mg Q4H PRN Administration Pain , Severe (7-10) Ondansetron HCl 4 mg 06/26/22 04:43 Ondansetron 4 Mg/2 Ml Inj IV Q8H PRN Nausea And Vomiting Sodium Chloride 10 ml 06/26/22 10:00 Sodium Chloride 0.9% 10 Ml Flush Syringe IV BID IBRAHIMA Sodium Chloride 10 ml 06/26/22 04:43 Sodium Chloride 0.9% 10 Ml Flush Syringe IV PRN PRN LINE FLUSH
[2022-06-26] MEDS ORDERED: OSELTAMIVIR 75 MG CAP PO SCH (10:00)
[2022-06-26] MEDS: FAMOTIDINE 20 MG TAB PO SCH (22:42)
[2022-06-26] MEDS: HEPARIN 5,000 UNIT/1 ML VIAL SUB-Q SCH (22:42)
[2022-06-27] MEDS ORDERED: cefTRIAXone/NS 2 GM/100 ML 2 GM/100 ML BAG IV SCH (05:00)
[2022-06-27 08:05] LABS: Hematocrit 40.7 % (30.3-42.9); Hemoglobin 13.6 gm/dl (10.1-14.3); Mean Corpuscular HGB Conc 34 % (30-34); Mean Corpuscular Volume 80 fl (79-97); Platelet Count 174 K/mm3 (140-440); Red Blood Count 5.09 M/mm3 (3.65-5.03); Red Cell Distribution Width 14.2 % (13.2-15.2)
[2022-06-27 08:35] LABS: Blood Urea Nitrogen 7 mg/dL (7-17); Calcium 8.8 mg/dL (8.4-10.2); Hemolysis Index 29
[2022-06-27 08:37] LABS: BUN/Creatinine Ratio 10
[2022-06-27 09:25] LABS: Band Neutrophils # (Manual) 0.2 K/mm3; Basophils % (Manual) 0 % (0.0-1.8); Eosinophils % (Manual) 0 % (0.0-4.3); Total Cells Counted 100
[2022-06-27 09:26] LABS: Platelet Estimate Consistent w Auto
[2022-06-27] MEDS ORDERED: AZITHROMYCIN 250 MG TAB PO SCH (10:00)
[2022-06-27] MEDS: HEPARIN 5,000 UNIT/1 ML VIAL SUB-Q SCH ×2 (10:09→10:50)
[2022-06-27] MEDS: dexAMETHasone 4 MG/ML VIAL IV SCH ×2 (10:09→11:35)
[2022-06-27] MEDS ORDERED: ALBUTEROL 8.5 GM MDI INHALATION IH PRN (10:44)
[2022-06-27] MEDS: FAMOTIDINE 20 MG TAB PO SCH ×2 (11:36→16:03)
[2022-06-27 12:19] VITALS: BP 109/78
[2022-06-27] MEDS: IPRATROPIUM/ALBUTEROL SULFATE 3 ML AMPUL.NEB IH SCH ×2 (12:52→12:53)
--- NOTE | 2022-06-27 14:29 | Discharge Summary ---
Providers - Providers Date of Admission: 06/26/22 04:44 Date of discharge: 06/27/22 Attending physician: JOSE STINSON 06/26/22 21:05 Consult to Dietitian/Nutrition [CONS] Routine Physician Instructions: Reason For Exam: Reason for Consult: Poor oral intake Primary care physician: SUGAR BAEZ Hospitalization Condition: Stable Hospital course: 27 years old female with no significant past medical history except marijuana abuse was brought to the emergency room because of shortness of breath and coughing and congestion and coryza. T-max is 98.9. In the emergency room patient oxygen dropped to 88% on ambulation. Patient chest x-ray shows right lower lobe pneumonia. She was admitted for hypoxia and pneumonia. She was placed on empiric antibiotics, tested for COVID and her COVID test was negative. Patient symptom improved significantly with supportive care. She was resting on room air without dropping in oxygen saturation. Patient was then discharged home in stable condition with outpatient follow-up. She was given prescription of levaquin for 5 days to treat her underlying pneumonia. Disposition: 01 HOME / SELF CARE / HOMELESS Final Discharge Diagnosis (Prints w/discharge instructions): -- right lower lobe pneumonia pneumonia/community-acquired/present on admission. --Hypoxia requiring supplemental oxygen/present on admission, resolved. -- COVID-19 PUI, negative test. -- History of marijuana use, counseled for abstinence. -- Mild protein calorie malnutrition with BMI 17.3, encouraged healthy nutritious diet Time spent for discharge: 34 minutes Core Measure Documentation - Palliative Care Palliative Care/ Comfort Measures: Not Applicable - Core Measures Any of the following diagnoses?: none Exam - Physical Exam Narrative exam: GENERAL: -[place] female, lean and thin, appeared to be in no discomfort. HEENT: Normocephalic. Atraumatic. No conjunctival congestion or icterus. Patient has moist mucous membranes. NECK: Supple. Trachea midline. CHEST/LUNGS: Clear to auscultated bilaterally, breathing nonlabored. No wheezes crackles or rhonchi. HEART/CARDIOVASCULAR: Regular in rate and rhythm. S1 and S2 positive. ABDOMEN: Abdomen is soft, nontender. Patient has normal bowel sounds. SKIN: There is no rash. Warm and dry. NEURO: No focal motor deficit. Follows command. MUSCULOSKELETAL: No joint effusion or tenderness. EXTRIMITY: No edema, no cyanosis or clubbing. PSYCH: Cooperative. - Constitutional Vitals: Temp Pulse Resp BP Pulse Ox 98.9 F 63 15 109/78 100 06/27/22 11:48 06/27/22 11:48 06/27/22 11:48 06/27/22 11:48 06/27/22 11:48 Plan Activity: advance as tolerated Weight Bearing Status: Weight Bear as Tolerated Diet: regular Follow up with: SUGAR BAEZ MD [Primary Care Provider] - 3-5 Days Forms: Work/School Release Form Prescriptions: levoFLOXacin [Levaquin] 750 mg PO QDAY #5 tablet guaiFENesin ER [Mucinex ER] 600 mg PO Q12H #14
== END 2022-06-27 16:13 | disposition home or self-care (01) ==
LOC: ED 19:07 → 3A 06-26 04:44 → INTOOBSV 06-26 04:44 → 3A 06-26 19:02
PROVIDERS: ADMIT Hospitalist; ATTEND Internal Medicine
DX: J18.1 Lobar pneumonia, unspecified organism (principal); F12.11 Cannabis abuse, in remission; Z79.899 Other long term (current) drug therapy
CPT/HCPCS: 36415; 71045; 80048; 80053; 80307; 81001; 84702; 85007; 85025; 96365; 96367; 96372; 96375; 96376; 99284; G0378; J0456; J0696; J1100; J1644; J2270; U0003; 96366